=== PATIENT | male | born 1975 | race Asian ===

== ENCOUNTER → 2016-07-03 14:29 | Outpatient (CLI) | payer BC ==
[2016-05-29 11:26] VITALS: BMI 23.0
[~2016-07-03 14:29] MED LIST: CRESTOR20 MG PO; LISINOPRIL10 MG PO; PEPCID20 MG PO; PREDNISONE5 MG PO; TOPROL XL50 MG PO; ZYLOPRIM100 MG PO
== END | disposition home or self-care (01) ==
LOC: D.LABREF 14:29
DX: M10.9 Gout, unspecified (principal); E78.5 Hyperlipidemia, unspecified; Z00.00 Encounter for general adult medical examination without abnormal findings; I12.9 Hypertensive chronic kidney disease with stage 1 through stage 4 chronic kidney disease, or unspecified chronic kidney disease; N18.9 Chronic kidney disease, unspecified

== ENCOUNTER → 2016-07-04 08:55 | Outpatient (CLI) | payer BC ==
[2016-05-29 11:26] VITALS: BMI 23.0
[2016-07-04 09:25] LABS: BASOPHILS 0.4 % (0.0-2.0); EOSINOPHILS 1.8 % (0-7); HEMATOCRIT 42.6 % (42.0-54.0); HEMOGLOBIN 13.8 g/dL (13.5-17.5); IMMATURE GRANULOCYTES 0.8 % (0-5); LYMPHOCYTES 17.4 % (15-50); MCH 29.4 pg (26.0-34.0); MCHC 32.4 g/dL (31.0-37.0); MCV 90.8 fL (80.0-100.0); MEAN PLATELET VOLUME 10.2 fL (7.4-10.4); MONOCYTES 7.8 % (2-11); NEUTROPHILS 71.8 % (40-80); PLATELET COUNT 160 10x3/uL (130-400); RBC 4.69 10x6/uL (4.20-6.10); RDW 13.2 % (11.5-14.5); WBC 8.3 10x3/uL (4.8-10.8)
[2016-07-04 09:53] LABS: ALBUMIN 2.7 g/dL (3.4-5.0); ANION GAP 10.9 mmol/L (8-16); BILIRUBIN - DIRECT 0.05 mg/dL (0.00-0.30); BILIRUBIN - INDIRECT 0.24 mg/dL (0.00-1.00); BILIRUBIN - TOTAL 0.29 mg/dL (0.2-1.3); CALCIUM 8.2 mg/dL (8.5-10.1); CARBON DIOXIDE 28.9 mmol/L (21.0-32.0); CHOL - HDL RATIO 3.4 ratio (2.3-4.9); LDL-HDL RATIO 2.1 ratio (1.5-3.5); POTASSIUM - SERUM 4.8 mmol/L (3.5-5.1); URIC ACID 7.9 mg/dL (2.6-7.2)
== END | disposition home or self-care (01) ==
LOC: D.LAB 08:55
PROVIDERS: Family Medicine
DX: Z12.5 Encounter for screening for malignant neoplasm of prostate (principal); M10.9 Gout, unspecified; E78.5 Hyperlipidemia, unspecified; I10 Essential (primary) hypertension; N18.9 Chronic kidney disease, unspecified

== ENCOUNTER 2016-11-28 13:55 | Outpatient (CLI) | payer BC, MEDICAID ==
[~2016-11-28] VITALS: Ht 165.1 cm; Wt 65.5 kg
[2016-11-28 14:36] VITALS: BP 121/88; Ht 165.1 cm; Wt 65.5 kg
== END 2016-11-28 14:50 ==
LOC: D.OPS 13:55
DX: M81.0 Age-related osteoporosis without current pathological fracture (principal)

== ENCOUNTER → 2017-03-22 08:54 | Outpatient (CLI) | payer BC, MEDICAID ==
[2016-11-28 14:36] VITALS: BMI 24.0
== END ==
LOC: D.RAD 08:54
DX: M79.1 Myalgia (principal)

== ENCOUNTER → 2017-06-07 12:56 | Outpatient (CLI) | payer BC, MEDICAID ==
[2016-11-28 14:36] VITALS: BMI 24.0
== END | disposition home or self-care (01) ==
LOC: D.MRI 12:56
DX: M54.16 Radiculopathy, lumbar region (principal); M25.561 Pain in right knee

== ENCOUNTER → 2017-06-22 11:49 | Outpatient (CLI) | payer BC, MEDICAID ==
[2016-11-28 14:36] VITALS: BMI 24.0
== END | disposition home or self-care (01) ==
LOC: D.US 08:00
DX: M71.38 Other bursal cyst, other site (principal)

== ENCOUNTER 2017-09-13 11:46 | Outpatient (CLI) | payer MEDICAID ==
[~2017-09-13] VITALS: Ht 165.1 cm; Wt 65.9 kg
[2017-09-13 12:46] VITALS: BP 131/90; Ht 165.1 cm; Wt 65.9 kg
== END 2017-09-13 12:55 | disposition home or self-care (01) ==
LOC: D.OPS 11:46
DX: M81.0 Age-related osteoporosis without current pathological fracture (principal)